=== PATIENT | female | born 1980 | race African-American/Black ===

== ENCOUNTER → 2020-08-15 | Outpatient (CLI) | payer BC ==
--- NOTE | 2020-08-15 12:42 | KCIC ---
EXAMINATION: MRI LEFT KNEE WITHOUT IV CONTRAST CLINICAL HISTORY: Left knee pain x 6 weeks. Injured doing yoga felt a pop. Fluid drained. TECHNIQUE: Multiplanar multisequential images obtained through the knee without intravenous contrast. COMPARISON: Left knee radiographs 03/06/2020 FINDINGS: MENISCI: Medial Meniscus: Tear in the body which appears to most likely be horizontal in nature, but evaluatio n is limited by motion artifact on coronal sequences. Lateral Meniscus: Intact. LIGAMENTS: ACL: Intact PCL: Intact MCL: Intact LCL Complex: Intact CARTILAGE: Medial Femoral Condyle: Large area(s) of predominantly high grade (greater than 50% thickness) cartil age loss and or fissuring with smaller area(s) of full thickness cartilage loss and or fissuring with subchondral marrow reactive/cystic changes, predominantly in the weightbearing portion of the condyl e Medial Tibial Plateau: Normal Lateral Femoral Condyle: Normal Lateral Tibial Plateau: Normal Patella: Moderate sized area(s) of predominantly low grade (less than 50% thickness) cartilage loss a nd or fissuring with smaller area(s) of high grade (greater than 50% thickness) cartilage loss and or fissuring, predominantly in the lateral facet Trochlea: Small areas(s) of predominantly low grade (less than 50% thickness) cartilage loss and or f issuring with smaller area(s) of full thickness cartilage loss and or fissuring with subchondral jose martin ow reactive/cystic changes TENDONS: Distal quadriceps and patellar tendons intact. Popliteus tendon intact. BONES AND MARROW: No evidence of acute fracture or suspicious marrow replacing process. MUSCLES: Muscle bulk and signal intensity within normal limits. JOINT FLUID AND SYNOVIUM: Moderate joint effusion. Mild synovitis. No Moseley's cyst. IMPRESSION: Mild to moderate full-thickness chondral wear in the medial compartment and medial meniscus tear. No acute ligamentous injury. Electronically signed by: Kiel Nichole DO (08/15/2020 12:40 PM) [id number]
== END ==
LOC: KCIC MRI 07:54
PROVIDERS: ATTEND Orthopaedic Surgery
DX: M25.462 Effusion, left knee (principal); M65.88 Other synovitis and tenosynovitis, other site
CPT/HCPCS: 73721